=== PATIENT | male | born 1985 | race Caucasian/White ===

== ENCOUNTER 2017-03-21 18:19 | Emergency (ER) | payer OTHER ==
[2017-03-21 18:49] VITALS: PULSE 66; O2SAT 96
--- NOTE | 2017-03-21 20:32 | EDPHY ---
H & P Smoking Status: Never smoked Time Seen by Provider: 03/21/17 20:10 HPI/ROS: CHIEF COMPLAINT: Right knee injury HISTORY OF PRESENT ILLNESS: 31-year-old male presents to the emergency department with injury to his right knee. The patient states at 4:00 a.m., over 12 hours ago, the patient felt like he hyperextended his right knee stepping down from a step. He continued to do his normal job but because he was having ongoing pain his employer told him to come to the emergency department for evaluation. He is able to ambulate although this does cause pain. Denies any other trauma or injury. ROS: Denies numbness or tingling in his toes, pain in the right ankle or hip. 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 He has no pain with palpation the medial or lateral joint line. He has full flexion full extension of the knee. No obvious laxity of the ligaments. He has a normal gait. He is able to do a full deep knee bend or squat with just the right knee unassisted without difficulty. (Fani Shaw) Constitutional: Initial Vital Signs Temperature (C) 36.8 C 03/21/17 18:45 Heart Rate 66 03/21/17 18:45 Respiratory Rate 18 03/21/17 18:45 Blood Pressure 111/62 03/21/17 18:45 O2 Sat (%) 96 03/21/17 18:45 O2 Delivery Mode Room Air Allergies/Adverse Reactions: No Known Allergies Allergy (Unverified 03/21/17 18:45) Home Medications: Medication Instructions Recorded NK [No Known Home Meds] 03/21/17 MDM/Departure - MDM ED Course/Re-evaluation: 31-year-old male presents to the emergency department with right knee injury. X- rays reveal no fractures. There is no obvious ligament instability. Normal gait. The patient is requesting to be discharged and may return to work full duty. Patient was given orthopedic referral. (Fani Shaw) I did not see this patient while he was in the emergency department. However his care was discussed with the PA while the patient was in the department. I agree with treatment plan and management (Sina Martin) - Depart Disposition: Home, Routine, Self-Care Clinical Impression: Right knee sprain Qualifiers: Encounter type: initial encounter Involved ligament of knee: unspecified ligament Qualified Code(s): S83.91XA - Sprain of unspecified site of right knee , initial encounter Condition: Good Instructions: Knee Sprain (ED) Additional Instructions: Ok to return to work full duty. Return to the emergency department or follow up with orthopedic surgeon on-call if you developed swelling in her knee, if your leg feels unstable, if he developed increasing pain or any other concerns. Referrals: Derek Jett MD [Medical Doctor] - As per Instructions
[2017-03-21 20:55] VITALS: BP 126/70; RESP 16; TEMP 97.9
== END 2017-03-21 20:55 | disposition home or self-care (01) ==
DX: S83.91XA Sprain of unspecified site of right knee, initial encounter (principal); X58.XXXA Exposure to other specified factors, initial encounter; Y99.0 Civilian activity done for income or pay